=== PATIENT | male | born 1980 | race Caucasian/White ===

== ENCOUNTER 2016-08-04 08:52 | Emergency (ER) | payer OTHER ==
[~2016-08-04] VITALS: Ht 165.1 cm; Wt 110.2 kg
[2016-08-04 11:32] VITALS: BP 154/91
== END 2016-08-04 11:32 | disposition home or self-care (01) ==
LOC: ED 08:52
DX: L03.115 Cellulitis of right lower limb (principal); B35.3 Tinea pedis; R03.0 Elevated blood-pressure reading, without diagnosis of hypertension; Z79.899 Other long term (current) drug therapy
CPT/HCPCS: 82962